=== PATIENT | male | born 2000 | race Caucasian/White ===

== ENCOUNTER 2024-07-06 23:35 | Emergency (ER) | payer SELFPAY ==
[~2024-07-06] VITALS: Ht 172.7 cm; Wt 68.0 kg
[2024-07-06 23:40] VITALS: BP 124/66; PULSE 69; RESP 20; TEMP 98; O2SAT 99
[2024-07-07 00:57] LABS: FLU A ANTIGEN negative (NEGATIVE); FLU B ANTIGEN NEGATIVE (NEGATIVE)
[2024-07-07] MEDS ORDERED: CETI10SG1 PO (03:02)
[2024-07-07 03:15] VITALS: BP 129/52; PULSE 98; RESP 20; TEMP 98; O2SAT 98
== END 2024-07-07 03:15 | disposition home or self-care (01) ==
LOC: MED 23:35
DX: R06.02 Shortness of breath (principal); Z20.822 Contact with and (suspected) exposure to COVID-19; Z91.030 Bee allergy status
CPT/HCPCS: 71045; 99284